=== PATIENT | female | born 1985 | race Caucasian/White ===

== ENCOUNTER → 2017-10-08 13:30 | Outpatient (CLI) | payer OTHER, SELFPAY ==
[2017-10-11 14:28] LABS: HPV Reflexed? NOT INDICATED
== END ==
PROVIDERS: Family Provider Family Medicine; PCP Family Medicine; Visit Provider Obstetrics & Gynecology
DX: Z12.4 Encounter for screening for malignant neoplasm of cervix (principal)
CPT/HCPCS: 88175; G0145

== ENCOUNTER → 2018-11-18 | Outpatient (CLI) | payer OTHER, SELFPAY ==
[2016-01-24 13:57] VITALS: BMI 26.9
[2018-11-23 13:11] LABS: HPV Reflexed? NOT INDICATED
== END | disposition home or self-care (01) ==
LOC: LABSPEC 16:59
PROVIDERS: Visit Provider Obstetrics & Gynecology
DX: Z12.4 Encounter for screening for malignant neoplasm of cervix (principal)
CPT/HCPCS: 88175; G0145

== ENCOUNTER → 2020-02-09 | Outpatient (CLI) | payer SELFPAY ==
[2020-02-13 15:00] LABS: HPV APTIMA, High Risk Negative (Negative); HPV Reflexed? YES, CHARGE PATIENT
== END | disposition home or self-care (01) ==
PROVIDERS: Visit Provider Student in an Organized Health Care Education/Training Program
DX: Z12.4 Encounter for screening for malignant neoplasm of cervix (principal)
CPT/HCPCS: 87624; 88175; G0145

== ENCOUNTER 2021-08-19 03:53 | Emergency (ER) | payer OTHER, SELFPAY ==
[2021-08-19 03:54] VITALS: BP 113/66; PULSE 73; RESP 12; TEMP 37.1; O2SAT 99; BMI 22.4
[2021-08-19 04:06] VITALS: BP 100/68; BP 103/65; BP 97/60; PULSE 71; PULSE 74
--- NOTE | 2021-08-19 04:06 | EKG12_ITS ---
Test Reason : DYSRHYTHMIA Blood Pressure : / mmHG Vent. Rate : 068 BPM Atrial Rate : 068 BPM P-R Int : 152 ms QRS Dur : 088 ms QT Int : 408 ms P-R-T Axes : 066 057 050 degrees QTc Int : 433 ms Normal sinus rhythm Normal ECG Confirmed by ZUNILDA MONREAL, CRISTIN ([id number]), editor news DAVID LOPEZ ([id number]) on 08/21/2021 10:37:03 AM Referred By: BB Confirmed By:CRISTIN MAURO MD
--- NOTE | 2021-08-19 04:06 | EX.ED.DYSGE1 ---
HPI History of Present Illness Chief Complaint: Syncope Informant: patient and EMS Onset/Context/Timing Onset: Today (JPTA) Timing: Intermittent (one episode) and Lasts (unk) Quality: passed out Current Severity: Gone Maximum Severity: Moderate Worsened by: nothing specific Relieved by: unk Associated Symptoms Associated Symptoms: nausea Narrative Narrative: Patient got up in the middle of the night because she had to use the restroom and felt like she needed to have a bowel movement. On the way to the bathroom, she started feeling nauseated, then she woke up on the floor apparently having had passed out. She is a little sore in her left thigh, but she denies any injury or pain elsewhere. She denies any other prodromal symptoms such as headache, chest discomfort, shortness of breath, palpitations, focal neurologic symptoms, or diplopia. Now she feels fine except she is still little nauseated. Denies any recent illness. This is never happened before. Last normal menstrual cycle was 08/12/2021, usually regular, this was about 1 week ago. Patient later clarifies the above history by saying that when she passed out, she had just gotten done having the bowel movement. [facility] Medical History Hypotension Home Medications NK 08/19/21 [History Last Taken Unknown] Allergy/AdvReac Type Severity Reaction Status Date / Time erythromycin base Allergy Rash Verified 08/19/21 03:59 [Erythromycin Base] Surgical History History of cholecystectomy Social History Smoking Status: Never smoker ROS ROS ED Constitutional Constitutional ED: Denies chills or fever(s) Eyes Eyes: Denies change in vision or diplopia ENT ENT ED: Denies rhinorrhea or sore throat Cardiovascular Cardiovascular: Denies chest pain or palpitations Respiratory/Chest Respiratory/Chest: Denies cough or dyspnea Gastrointestinal Gastrointestinal: Reports nausea; Denies abdominal pain, diarrhea or vomiting Genitourinary Genitourinary ED: Denies dysuria or hematuria Musculoskeletal Musculoskeletal: Denies back pain or neck pain Integumentary Denies abscess or rash Neurologic Neurologic: Denies headache(s), paresthesias or weakness Psychiatric Psychiatric: Denies anxiety or suicidal thoughts EXAM Physical Exam Const Vital Signs: 08/19/21 03:54 08/19/21 04:02 08/19/21 04:06 Temperature 98.8 F Temperature Source Oral Pulse Rate 73 Pulse Rate [Lying] 71 Pulse Rate [Sitting (for 1 minute prior to obtaining)] 74 Respiratory Rate 12 Respiratory Effort Normal Non-Labored Respiratory Pattern Normal Blood Pressure 113/66 Blood Pressure [Lying] 97/60 Blood Pressure [Sitting (for 1 minute prior to obtaining)] 103/65 Blood Pressure [Standing (for 1 minute prior to obtaining)] 100/68 Blood Pressure Mean 81 Blood Pressure Mean [Lying] 72 Blood Pressure Mean [Sitting (for 1 minute prior to obtaining)] 77 Blood Pressure Mean [Standing (for 1 minute prior to obtaining)] 78 Pulse Ox 99 Oxygen Delivery Method Room Air Positive well nourished and well developed General Appearance ED: well developed and NAD HEENT Reports moist mucous membranes normocephalic and atraumatic Eyes PERRL and EOMs intact bilaterally Neck full ROM and supple Resp normal respiratory effort and clear to auscultation bilaterally Cardio regular rate, regular rhythm, S1 normal heart sound, S2 normal heart sound and no murmurs Rate: Negative for bradycardia or tachycardic GI non-tender and non-distended Auscultation: normoactive bowel sounds Palpation: soft Back/Spine no CVA tenderness General Back: other FROM Extremity normal to inspection and full ROM General Extremety ED: Negative for edema, pulses abnormal or tenderness General Extremity: Negative for edema or pulses abnormal Neuro oriented x3, CN's II-XII intact bilaterally and no sensory deficits noted Sensorium / Orientation: awake and alert Motor Exam: strength 5/5 throughout Skin no rashes or lesions noted and no wounds MDM MDM MDM Narrative Medical decision making narrative: Patient's labs, urinalysis all negative. We did orthostatics and they were normal. She had no recurrence in symptoms although she had a little bit of abdominal cramping with a benign abdomen. Vital signs remained normal. She feels better overall. I suspect this was a vagal episode, and she does not have any major cardiac or vascular risk factors to warrant inpatient observation or further emergent testing at this time. Given appropriate discharge instructions and reasons to return. Lab Data Attestation: I reviewed the patient's lab results. Labs: Laboratory Results - last 24 hr 08/19/21 08/19/21 08/19/21 04:02 04:02 05:22 WBC 7.7 RBC 4.63 Hgb 14.6 Hct 43.4 MCV 93.7 MCH 31.5 MCHC 33.6 RDW Std Deviation 41.7 RDW Coeff of Callie 12.1 Plt Count 209 MPV 10.3 Immature Gran % (Auto) 0.300 Neut % (Auto) 83.2 H Lymph % (Auto) 8.9 L [place] % (Auto) 5.8 Eos % (Auto) 1.7 Baso % (Auto) 0.1 Absolute Neuts (auto) 6.4 Absolute Lymphs (auto) 0.68 L Nucleated RBC % 0 Sodium 140 Potassium 3.8 Chloride 103 Carbon Dioxide 33.0 H Anion Gap 4 L BUN 21 H Creatinine 0.83 Estim Creat Clear Calc 91.12 Est GFR (MDRD) Af Amer 99 Est GFR (MDRD) Non-Af 82 BUN/Creatinine Ratio 25.2 H Glucose 122 H Calcium 8.6 Urine Color Yellow Urine Clarity Clear Urine pH 8.0 Ur Specific [place] 1.010 Urine Protein 30 H Urine Glucose (UA) Normal Urine Ketones Negative Urine Occult Blood Negative Urine Nitrite Negative Urine Bilirubin Negative Urine Urobilinogen Normal Ur Leukocyte Esterase 100 H Urine RBC 0 SEEN Urine WBC 0-5 SEEN Ur Squamous Epith Cells 0-5 SEEN Urine Bacteria 1+ Urine Mucus 0 SEEN EKG Initial EKG: Attestation: I personally reviewed and interpreted this EKG as follows: Interpretation: Sinus Rhythm and No Acute Injury Pattern Comments: Normal EKG Discharge Plan Triage Chief Complaint: Syncope ED Provider: Darin Gutierrez Dx/Rx/DC Orders Clinical Impression: Syncope, vasovagal Instructions: Understanding Vasovagal Syncope Prescriptions: No Action NK RF: 0 Primary Care Provider: Care Physician,No Primary Referrals: Aurora Bhardwaj MD [STAFF PHYSICIAN] - As Needed Care Physician,No Primary [Primary Care Provider] - Disposition Disposition: Home, Self Care
[2021-08-19 04:11] LABS: Absolute Lymphocyte Count 0.68 X10^3/uL (0.83-4.51); Absolute Neutrophil Count 6.4 X10^3/uL (2.0-7.7); Basophil# 0.01 X10^3/uL; Basophil% 0.1 % (0-1); Eosinophil# 0.13 X10^3/uL; Eosinophils% 1.7 % (0-5); Hematocrit 43.4 % (37-47); Hemoglobin 14.6 g/dL (12.0-15.0); Lymphocyte # 0.68 X10^3/ul (0.83-4.51); Lymphocyte % 8.9 % (19-41); Mean Corp Hgb Conc 33.6 g/dL (32-36); Mean Corpuscular Hgb 31.5 pg (27.0-32.0); Mean Corpuscular Volume 93.7 fL (81-99); Mean Platelet Vol. 10.3 fl (6.2-12.0); Monocyte# 0.44 X10^3/uL; Monocyte% 5.8 % (0-10); NRBC Flagged by Analyzer 0 % (0-5); Neutrophil # 6.37 X10^3/uL (2.7-7.7); Neutrophil % 83.2 % (47-70); Platelet Count 209 K/mm3 (150-450); RBC Distribution Width CV 12.1 % (11.6-14.6); RBC Distribution Width SD 41.7 fl (35.1-43.9); Red Blood Count 4.63 M/mm3 (4.2-5.4); White Blood Count 7.7 K/mm3 (4.4-11.0)
[2021-08-19 04:23] LABS: Anion Gap 4 (5-15); BUN 21 mg/dL (7-18); BUN/Creat Ratio 25.2 RATIO (10-20); Calcium,Total 8.6 mg/dL (8.5-10.1); Chloride 103 mmol/L (98-107); Creatinine, Serum 0.83 mg/dL (0.55-1.02); EST Glomerular Filtration Rate 82 mL/min (>60); Est Glom Filt Rate - Afr Amer 99 mL/min (>60); Estimated Creatinine Clearance 91.12 ml/min; Glucose 122 mg/dL (74-106); Potassium 3.8 mmol/L (3.5-5.1); Sodium Level 140 mmol/L (136-145)
[2021-08-19] MEDS: Ondansetron 4 MG/2 ML Vial IV (04:33)
[2021-08-19 05:32] LABS: Mucous, Urine 0 SEEN /hpf (<or=2+); Red Blood Cells-Urine 0 SEEN /hpf (0-5)
[2021-08-19 05:37] LABS: Color, Urine Yellow (Yellow); Glucose, Dipstick Normal (Normal); Ketone-Dipstick Negative (Negative); Leukocyte Esterase-Dipstick 100 /ul (Negative); Nitrite-Dipstick Negative (Negative); Occult Blood-Urine Negative /ul (Negative); Protein-Dipstick 30 mg/dl (Negative); Urine Bilirubin Dipstick Negative (Negative); Urine Clarity Clear (Clear); Urine Urobilinogen Normal (Normal)
[2021-08-19 05:54] VITALS: BP 93/59; PULSE 69; RESP 15; O2SAT 97
[2021-08-19 05:55] LABS: Bacteria 1+ /hpf (None Seen); Squamous Epithelial Cells - UA 0-5 SEEN /hpf (5-10); White Blood Cells 0-5 SEEN /hpf (0-5)
[2021-08-19 05:58] VITALS: BP 93/59; PULSE 75; RESP 16; O2SAT 97
== END 2021-08-19 06:21 | disposition home or self-care (01) ==
PROVIDERS: Emergency Provider Emergency Medicine; Visit Provider Emergency Medicine
DX: R55 Syncope and collapse (principal); R10.9 Unspecified abdominal pain; R11.0 Nausea
CPT/HCPCS: 80048; 81001; 85025; 93005; 96374; 99285; A4216; J2405

== ENCOUNTER 2022-02-10 06:24 | Emergency (ER) | payer OTHER, SELFPAY ==
[2022-02-10 06:27] VITALS: BP 107/76; PULSE 66; RESP 16; TEMP 36.7; O2SAT 100; BMI 22.1
--- NOTE | 2022-02-10 06:50 | CT_ITS ---
STUDY: CT ABDOMEN AND PELVIS WITH CONTRAST REASON FOR EXAM: Female, 36 years old patient with right lower quadrant abdominal pain. Questionable appendicitis. Prior cholecystectomy. RADIATION DOSAGE (If Supplied By Facility): CTDIvol = ( 24.9 ) mGy, DLP = ( 529.21 ) mGycm TECHNIQUE: Transaxial images were obtained from the dome of the diaphragm to the symphysis pubis without oral contrast. 75 ml of IV Isovue-370 was administered. Sagittal and coronal images were reconstructed. Individualized dose optimization techniques were used for this CT. COMPARISON: Gallbladder ultrasound dated 08/23/2012. FINDINGS: The visualized lung bases are unremarkable. The visualized portions of the heart are within normal limits. There is hepatomegaly with diffuse hepatic enlargement. The liver measures approximately 18.5 cm in greatest dimension. There appears to be mild periportal edema which may be the result of overhydration or hepatitis. There is non-visualization of the gallbladder, which may be secondary to either contraction or a prior cholecystectomy. Normal spleen. Normal pancreas. Normal bilateral adrenal glands. Normal right kidney. Normal left kidney. Normal visualized stomach. There is no obvious dilated bowel, ascites or pneumoperitoneum. Small bowel has a grossly normal appearance. There is stool visible throughout most of the colon. There is some thickening of the crowe of the proximal small bowel may be the result of acute infectious or inflammatory enteritis. The appendix is visualized and appears normal. Normal abdominal aorta. There is venous distention of the inferior vena cava (IVC). Normal retroperitoneum. Normal urinary bladder. Normal visualized uterus. Normal abdominal wall. Normal osseous structures. CT/Abdomen/Pelvis W IV Cont ONLY IMPRESSION: 1. Hepatomegaly. 2. Nonspecific thickening of the crowe of the small bowel may be secondary to acute infectious or inflammatory enteritis. Electronically Signed: Funmilayo Cuellar MD at 7:43 EDT ,
--- NOTE | 2022-02-10 06:54 | ED.VIS.GI ---
HPI HPI - GI History of Present Illness Chief Complaint: Abd Pain Detail of Chief Complaint: Right lower quadrant that started about 2 hours ago and woke her from sleep Informant: patient Abdominal Pain/Flank Pain Onset: Today and Hours Context: Gradual Onset Timing: Continuous Quality: Aching Location: RLQ Current Severity: Mild Maximum Severity: Mild Worsened by: Car ride Relieved by: Nothing Nausea/Vomiting/Emesis GI Symptom: Positive for Nausea; Negative for Vomiting Onset: Today Severity: Mild Diarrhea/Melena/Hematochezia GI Symptom: Negative for Diarrhea, Melena or Hematochezia Associated Symptoms Associated Symptoms: Negative for Dysuria, Frequency, Hematuria or Urgency Narrative Narrative: 36-year-old female no seen past medical history prior cholecystectomy. Awoke from sleep about 2 hours ago with right lower quadrant abdominal pain. Denies any prior history. No recent symptoms. Denies any dysuria. No history of kidney stone. No trauma. She has had mild chills and a little bit of nausea no vomiting or diarrhea no constipation. Denies being . 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 Prior similar symptoms: No Recent Illness/Hospitalization: No PFSH PFSH Medical History Hypotension Home Medications NK 08/19/21 [History Last Taken Unknown] Allergy/AdvReac Type Severity Reaction Status Date / Time erythromycin base Allergy Rash Verified 02/10/22 06:26 [Erythromycin Base] Surgical History History of cholecystectomy Social History Smoking Status: Never smoker ROS ROS ED ROS Narrative Right lower quadrant abdominal pain. Review of Systems ROS Unobtainable: Denies due to encephalopathy Constitutional Constitutional ED: Reports chills ENT ENT ED: Denies ear pain or rhinorrhea Cardiovascular Cardiovascular: Denies chest pain Respiratory/Chest Respiratory/Chest: Denies cough or dyspnea Gastrointestinal Gastrointestinal: Reports abdominal pain and nausea; Denies constipation, diarrhea, melena or vomiting Genitourinary Genitourinary ED: Denies dysuria or hematuria Musculoskeletal Musculoskeletal: Denies arthralgias Integumentary Denies abscess Neurologic Neurologic: Denies headache(s) Psychiatric Psychiatric: Denies anxiety Endocrine Endocrinology: Denies polydipsia Hematologic/Lymphatic Hematologic/Lymphatic: Denies easy bleeding Allergic/Immunologic Allergic/Immunologic ED: Denies mouth swelling EXAM Physical Exam Narrative Exam Narrative: 36-year-old female no acute distress. Vital signs stable afebrile. H EENT exam unremarkable. Neck nontender. Lungs clear to auscultation bilaterally. Heart regular rhythm rate about 65 no murmur. Abdomen soft nondistended normal bowel sounds. She is tender in her right lower quadrant. No peritoneal signs. Right upper and left lower quadrant unremarkable. No hernia or mass. No signs of obstruction. The only place she is tender is right lower quadrant she is tender over McBurney's point. No signs of trauma. Back nontender. Moving all 4 extremities. Neurologically she is awake and alert. Const Vital Signs: 02/10/22 06:27 Temperature 98.0 F Temperature Source Oral Pulse Rate 66 Respiratory Rate 16 Blood Pressure 107/76 Blood Pressure Mean 86 Pulse Ox 100 Oxygen Delivery Method Room Air Positive well nourished and well developed; Negative for obese, cachectic, contractures or unkempt General Appearance ED: well developed and NAD; Negative for unkempt, cachectic, contractures or pallor Nutritional Appearance: Negative for cachectic or obese HEENT Reports moist mucous membranes; Denies dry mucous membranes normocephalic and atraumatic; Negative for trauma or tenderness Mouth ED: No dry mucous membranes Mouth: No dry mucous membranes Eyes PERRL and EOMs intact bilaterally General Eye ED: Negative for pale conjunctiva or scleral icterus Neck no lymphadenopathy, supple and no JVD General: Negative for tenderness Carotids: Negative for other Lymph Lymphatic: Negative for other Resp normal respiratory effort and clear to auscultation bilaterally Effort and Inspection: Negative for respiratory distress, retractions or pain with movement Auscultation: Negative for rales, rhonchi or wheezes Cardio regular rate, regular rhythm, S1 normal heart sound, S2 normal heart sound and no murmurs Rate: Negative for bradycardia or tachycardic Rhythm: Negative for abnormal rhythm GI non-distended and no masses; Negative for non-tender Inspection: Negative for abdominal distention Auscultation: normoactive bowel sounds Palpation: soft and tender; Negative for guarding, rigid, hepatomegaly, splenomegaly, hernia, mass or pulsatile mass Back/Spine no CVA tenderness General Back: Negative for CVA tenderness Cervical Spine: Negative for cervical spine tenderness Thoracic Spine / Upper Back: Negative for thoracic spinal tenderness Lumbar Spine / Lower Back: Negative for lumbar spinal tenderness Extremity full ROM General Extremety ED: Negative for edema or tenderness General Extremity: Negative for edema Neuro CN's II-XII intact bilaterally and moves all extremities Sensorium / Orientation: alert, oriented to person, oriented to place and oriented to time; Negative for orientation impaired, confused, lethargic or stuporous Motor Exam: strength 5/5 throughout Psych mental status grossly normal and thought process normal Appearance: Negative for unkempt Attitude: No agitated Mood & Affect: Negative for depressed, anxious or tearful Skin no wounds General Skin Exam: Negative for jaundice or pallor Lesions: no lesions Rashes: no rashes Trauma: Negative for abrasion Nails: Negative for discolored MDM MDM MDM Narrative Medical decision making narrative: 36-year-old female with right lower quadrant abdominal pain began 2 hours ago with mild nausea. Really no other significant symptoms. She has had her gallbladder taken out in the past. Still has her appendix. No CLEAN ENERGY POLICY ANALYST surgeries. States she is not . Having no urinary symptoms. Differential diagnosis would include appendicitis versus kidney stone. Also possibly UTI or ovarian cyst. And mesenteric adenitis. She will have a CAT scan and labs. She will be treated with IV morphine, Toradol and Zofran. IV fluids. Repeat exam patient doing well. Her only pain is in the right lower quadrant. She has had no other symptoms such as fever nor diarrhea or constipation. Urinalysis is pending. I did speak to the patient versus UTI versus possible ovarian cyst but the location of her pain and history makes me strongly believe this could be appendicitis also mesenteric adenitis a possibility. Patient undergo a CAT scan with oral contrast limited study of the right lower quadrant. If it still a normal appendix she can be discharged to home with an enteritis. Should be checked out to the morning physician to check the repeat CAT scan with oral contrast. If the second CAT scan increase again agrees that this is not an acute appendicitis she will be discharged home. Tylenol Motrin for pain. Already discussed all this with the patient and her significant other at bedside. Lab Data Attestation: I reviewed the patient's lab results. Lab results narrative: CBC shows a white count of 4.3. H&H of 13.9 and 42. Platelets of 202. Serum test negative. Electrolytes show a gap of 5 a normal BUN and creatinine. Normal liver enzymes. Urinalysis normal. No urinary tract infection. Labs: Laboratory Results - last 24 hr 02/10/22 02/10/22 02/10/22 06:35 06:35 06:35 WBC 4.3 L RBC 4.52 Hgb 13.9 Hct 42.4 MCV 93.8 MCH 30.8 MCHC 32.8 RDW Std Deviation 41.1 RDW Coeff of Callie 11.9 Plt Count 202 MPV 9.9 Immature Gran % (Auto) 0.200 Neut % (Auto) 38.1 L Lymph % (Auto) 46.4 H [place] % (Auto) 9.0 Eos % (Auto) 5.8 H Baso % (Auto) 0.5 Absolute Neuts (auto) 1.6 L Absolute Lymphs (auto) 2.00 Nucleated RBC % 0 Sodium 140 Potassium 3.7 Chloride 107 Carbon Dioxide 28.0 Anion Gap 5 BUN 14 Creatinine 0.82 Estim Creat Clear Calc 92.23 Est GFR (MDRD) Af Amer 101 Est GFR (MDRD) Non-Af 84 BUN/Creatinine Ratio 17.1 Glucose 89 Calcium 8.8 Total Bilirubin 0.40 AST 12 L ALT 22 Alkaline Phosphatase 38 L Total Protein 7.4 Albumin 3.9 Globulin 3.5 Albumin/Globulin Ratio 1.1 Serum , Qual NEGATIVE Urine Color Urine Clarity Urine pH Ur Specific [place] Urine Protein Urine Glucose (UA) Urine Ketones Urine Occult Blood Urine Nitrite Urine Bilirubin Urine Urobilinogen Ur Leukocyte Esterase Urine RBC Urine WBC Ur Squamous Epith Cells Urine Bacteria Urine Mucus 02/10/22 07:40 WBC RBC Hgb Hct MCV MCH MCHC RDW Std Deviation RDW Coeff of Callie Plt Count MPV Immature Gran % (Auto) Neut % (Auto) Lymph % (Auto) [place] % (Auto) Eos % (Auto) Baso % (Auto) Absolute Neuts (auto) Absolute Lymphs (auto) Nucleated RBC % Sodium Potassium Chloride Carbon Dioxide Anion Gap BUN Creatinine Estim Creat Clear Calc Est GFR (MDRD) Af Amer Est GFR (MDRD) Non-Af BUN/Creatinine Ratio Glucose Calcium Total Bilirubin AST ALT Alkaline Phosphatase Total Protein Albumin Globulin Albumin/Globulin Ratio Serum , Qual Urine Color Yellow Urine Clarity Sl. Cloudy Urine pH 6.0 Ur Specific [place] 1.010 Urine Protein Negative Urine Glucose (UA) Normal Urine Ketones Negative Urine Occult Blood Negative Urine Nitrite Negative Urine Bilirubin Negative Urine Urobilinogen Normal Ur Leukocyte Esterase 100 H Urine RBC 0 SEEN Urine WBC 0-5 SEEN Ur Squamous Epith Cells 5-10 SEEN Urine Bacteria 0 SEEN Urine Mucus 0 SEEN Radiography Diagnostic Testing: Clinical Impression(s) from Imaging Studies Abdomen/Pelvis CT 02/10/22 06:50 IMPRESSION: 1. Hepatomegaly. 2. Nonspecific thickening of the crowe of the small bowel may be secondary to acute infectious or inflammatory enteritis. Electronically Signed: Funmilayo Cuellar MD at 7:43 EDT Reading Location ID and State: [address] [place] [address] , Service support , Discharge Plan Triage Chief Complaint: Abd Pain ED Provider: John Paul Mary Dx/Rx/DC Orders Clinical Impression: Abdominal pain, Enteritis Instructions: Abdominal Pain Prescriptions: No Action NK Primary Care Provider: Paola Deng NP Referrals: Care Physician,No Primary [Non-Staff] - Paola Deng IC ENGINEER, IC ENGINEER-C [Primary Care Provider] - 3-5 Days if not improving Activity Restrictions/Additional Instructions: Your labs are unremarkable. The CAT scan showed inflammation of an area of small bowel consistent with an enteritis. This can be caused either an infection that usually viral or inflammation. Typically it resolves on its own. Motrin and Tylenol for pain. Follow-up with your primary care provider if not improving or return if feeling worse. Disposition Disposition: Home, Self Care
[2022-02-10 06:57] LABS: Absolute Neutrophil Count 1.6 X10^3/uL (2.0-7.7); Basophil# 0.02 X10^3/uL; Basophil% 0.5 % (0-1); Eosinophil# 0.25 X10^3/uL; Eosinophils% 5.8 % (0-5); Hematocrit 42.4 % (37-47); Hemoglobin 13.9 g/dL (12.0-15.0); Lymphocyte % 46.4 % (19-41); Mean Corp Hgb Conc 32.8 g/dL (32-36); Mean Corpuscular Hgb 30.8 pg (27.0-32.0); Mean Corpuscular Volume 93.8 fL (81-99); Mean Platelet Vol. 9.9 fl (6.2-12.0); Monocyte# 0.39 X10^3/uL; NRBC Flagged by Analyzer 0 % (0-5); Neutrophil # 1.64 X10^3/uL (2.7-7.7); Neutrophil % 38.1 % (47-70); Platelet Count 202 K/mm3 (150-450); RBC Distribution Width CV 11.9 % (11.6-14.6); RBC Distribution Width SD 41.1 fl (35.1-43.9); Red Blood Count 4.52 M/mm3 (4.2-5.4); White Blood Count 4.3 K/mm3 (4.4-11.0)
[2022-02-10] MEDS: Ondansetron 4 MG/2 ML Vial IV (07:00)
[2022-02-10] MEDS: 0.9% Normal Saline 1,000 ML 1000 ML IV (07:01)
[2022-02-10] MEDS: Ketorolac 30 MG/ML Syringe IV (07:01)
[2022-02-10] MEDS: morphine 8 MG/ML Syringe 6 MG IV (07:02)
[2022-02-10 07:14] LABS: Internal QC Validated? YES +Cl - CLEAR BKGD; Pregnancy, Serum, hCG Quali. NEGATIVE Negative
[2022-02-10 07:26] LABS: ALB/GLOB Ratio 1.1 RATIO (0.9-2.4); AST(SGOT) 12 U/L (15-37); Alanine Aminotransfer ALT/SGPT 22 U/L (13-56); Albumin, Serum 3.9 g/dL (3.2-5.0); Alkaline Phosphatase 38 U/L (45-117); Anion Gap 5 (5-15); BUN 14 mg/dL (7-18); BUN/Creat Ratio 17.1 RATIO (10-20); Calcium,Total 8.8 mg/dL (8.5-10.1); Chloride 107 mmol/L (98-107); Creatinine, Serum 0.82 mg/dL (0.55-1.02); EST Glomerular Filtration Rate 84 mL/min (>60); Est Glom Filt Rate - Afr Amer 101 mL/min (>60); Estimated Creatinine Clearance 92.23 ml/min; Globulin 3.5 g/dL (2.2-4.2); Glucose 89 mg/dL (74-106); Potassium 3.7 mmol/L (3.5-5.1); Protein, Total 7.4 g/dL (6.4-8.2); Sodium Level 140 mmol/L (136-145)
[2022-02-10 07:49] LABS: Bacteria 0 SEEN /hpf (None Seen); Color, Urine Yellow (Yellow); Glucose, Dipstick Normal (Normal); Ketone-Dipstick Negative (Negative); Leukocyte Esterase-Dipstick 100 /ul (Negative); Mucous, Urine 0 SEEN /hpf (<or=2+); Nitrite-Dipstick Negative (Negative); Occult Blood-Urine Negative /ul (Negative); Protein-Dipstick Negative (Negative); Red Blood Cells-Urine 0 SEEN /hpf (0-5); Urine Bilirubin Dipstick Negative (Negative); Urine Clarity Sl. Cloudy (Clear); Urine Urobilinogen Normal (Normal)
[2022-02-10 07:55] LABS: Squamous Epithelial Cells - UA 5-10 SEEN /hpf (5-10); White Blood Cells 0-5 SEEN /hpf (0-5)
--- NOTE | 2022-02-10 08:22 | CT_ITS ---
STUDY: CT ABDOMEN AND PELVIS WITHOUT CONTRAST REASON FOR EXAM: Female, 36 years old. F/U POSSIBLE APPENDICITIS FOLLOW-UP TO EARLIER STUDY RADIATION DOSAGE (If Supplied By Facility): CTDIvol = ( 6.50 ) mGy, DLP = ( 277.65 ) mGycm TECHNIQUE: Transaxial images were obtained from the dome of the diaphragm to the symphysis pubis without oral contrast, and without intravenous contrast. Sagittal and coronal images were reconstructed. Individualized dose optimization techniques were used for this CT. COMPARISON: 02/10/2022 at 7:14 AM FINDINGS: The visualized lung bases are unremarkable. The visualized portions of the heart are within normal limits. The lack of intravenous contrast limits evaluation of solid visceral organs. Normal liver. There is non-visualization of the gallbladder, which may be secondary to either contraction or a prior cholecystectomy. Normal spleen. Normal pancreas. Normal bilateral adrenal glands. Normal right kidney. Normal left kidney. Normal visualized stomach. Normal small intestine. Normal colon. The appendix is visualized and appears normal. Normal abdominal aorta. Normal inferior vena cava. Normal retroperitoneum. Normal urinary bladder. Normal abdominal wall. Normal osseous structures. CT/Limited or Localized F/U CT IMPRESSION: No acute intra-abdominal process. Electronically Signed: Kinsey Sifuentes MD at 10:14 EDT ,
[2022-02-10 08:25] VITALS: BP 107/73; PULSE 54; RESP 18; TEMP 36.4; O2SAT 100
[2022-02-10 10:08] VITALS: BP 98/74; PULSE 48; RESP 16; O2SAT 100
[2022-02-10 10:28] VITALS: BP 98/67; PULSE 52; RESP 16; O2SAT 100
== END 2022-02-10 10:34 | disposition home or self-care (01) ==
PROVIDERS: Emergency Provider Emergency Medicine; PCP Nurse Practitioner Family; Visit Provider Emergency Medicine
DX: K52.9 Noninfective gastroenteritis and colitis, unspecified (principal); R68.83 Chills (without fever); Z90.49 Acquired absence of other specified parts of digestive tract
CPT/HCPCS: 74177; 76380; 80053; 81001; 84703; 85025; 96361; 96374; 96375; 99282; J7030; Q9967; A4216; J2405

== ENCOUNTER → 2022-02-13 | Outpatient (CLI) | payer OTHER, SELFPAY ==
[2022-02-20 11:44] LABS: HPV APTIMA, High Risk Negative (Negative)
== END | disposition home or self-care (01) ==
LOC: LABSPEC 12:14
PROVIDERS: PCP Nurse Practitioner Family; Visit Provider Student in an Organized Health Care Education/Training Program
DX: Z12.4 Encounter for screening for malignant neoplasm of cervix (principal)
CPT/HCPCS: 87624; 88175; G0145